=== PATIENT | female | born 1955 | race Caucasian/White ===

== ENCOUNTER → 2020-11-08 04:38 | Outpatient (CLI) | payer BC, SELFPAY ==
[2020-11-08 18:47] LABS: SARS-CoV-2 RNA PCR Negative
== END ==
PROVIDERS: PCP Family Medicine; Visit Provider Internal Medicine Gastroenterology
DX: Z01.812 Encounter for preprocedural laboratory examination (principal); Z20.822 Contact with and (suspected) exposure to COVID-19
CPT/HCPCS: C9803; U0003; U0005

== ENCOUNTER 2020-11-11 01:11 | Day surgery (SDC) | payer BC, SELFPAY ==
[2020-10-31 12:09] VITALS: BMI 20.9
[2020-11-11 06:34] VITALS: BP 125/78; PULSE 73; RESP 16; TEMP 36.3; O2SAT 100
[2020-11-11] MEDS: LACTATED RINGERS 1,000 ML 150 ML IV CONT (06:36)
--- NOTE | 2020-11-11 07:16 | P.PNAN_ITS ---
Anes - Initial Pre Proc Eval Procedure: Operation Date: 11/11/20 07:30 Proposed Procedures p Screening Colonoscopy - Sergei Chao MD Date/Time: 11/11/20 07:16 Surgeon: Sergei Chao MD Pre Op Diagnosis: neoplasm screening Patient Data Age: 64 Gender: F Height: 5 ft 6 in Weight: 58 kg Last Vital Signs Temp 97.4 F L 11/11/20 06:34 Pulse 73 11/11/20 06:34 Resp 16 11/11/20 06:34 BP 125/78 11/11/20 06:34 Pulse Ox 100 11/11/20 06:34 Allergies Allergy/AdvReac Type Severity Reaction Status Date / Time No Known Allergies Allergy Verified 11/11/20 06:32 Home Medications Medication Instructions Recorded Confirmed Type No Home Medications 11/11/20 11/11/20 History Patient hx anesthesia problems: none Family hx anesthesia problems: none COUNT INCLUDES THE [facility] Past Medical History Medical History (Updated 11/11/20 @ 07:16 by Mika Cooper MD) DVT (deep vein thrombosis) in Social History Social History Smoking status: Never smoker Alcohol intake: current Drinks per week: 2 Alcohol use details: WINE Substance use: never Substance use type: does not use Living arrangements: with family Spiritual care concerns: No Anes - Eval Final PreProcedure Day of Procedure 11/11/20 07:16 Patient weight: normal Heart: regular rate and rhythm Lungs: clear to auscultation Airway: Mallampati scale class II Neurological: alert and oriented Last oral intake: >/= 8 hours ASA classification: II Emergent: no Anesthetic plan: proceed Anesthesia type and monitoring: general GIVS and standard monitoring Informed Consent: The patient's anesthetic plan and its attendant risks and benefits were discussed with the patient/family/POA. Questions were solicited and answers provided to the satisfaction of the patient/family/POA.
--- NOTE | 2020-11-11 07:20 | P.CONGI_ITS ---
Assessment and Plan Assessment and plan (1) Encounter for screening colonoscopy: Code(s): Z12.11 - Encounter for screening for malignant neoplasm of colon Status: Acute Assessment and Plan: Patient presents for screening colonoscopy. Has been more than 10 years since last exam. She appears to be at average risk for colon polyps. GI Consult Note Consult date/time: 11/11/20 07:20 HPI: Regan Denise is a 64 year old female presents for neoplasia screening. Patient's last colonoscopy was greater than 10 years ago. Patient states that her current weight appetite and bowel movements are normal. She denies abdominal pain. She has had no bleeding. Her family history is noncontri butory. Review of Systems Review of Systems: All systems reviewed & are unremarkable except as noted in HPI and below PMFSH Past Medical History Medical History (Updated 11/11/20 @ 07:22 by Sergei Chao MD) DVT (deep vein thrombosis) in Social History Social History Smoking status: Never smoker Alcohol intake: current Drinks per week: 2 Alcohol use details: WINE Substance use: never Substance use type: does not use Living arrangements: with family Spiritual care concerns: No Meds Home Medications and Allergies Home Medications Medication Instructions Recorded Confirmed Type No Home Medications 11/11/20 11/11/20 History Allergies Allergy/AdvReac Type Severity Reaction Status Date / Time No Known Allergies Allergy Verified 11/11/20 06:32 Vital Signs Vital Signs - 24 hr 11/11/20 06:34 Temperature 97.4 F L Pulse Rate 73 Respiratory Rate 16 Blood Pressure 125/78 Pulse Oximetry 100 Exam Narrative: Exam Narrative: Physical exam reveals patient be alert. Vital signs stable. HEENT exam is unremarkable. Patient is anicteric. Lungs are clear to auscultation and percussion. Heart is without murmur or extra sounds. Abdominal exam bowel sounds are present soft nontender with no organomegaly. Digital external rectal exam is normal.
[2020-11-11 07:59] VITALS: BP 94/56; PULSE 58; RESP 17; O2SAT 100
[2020-11-11 08:09] VITALS: BP 99/56; PULSE 61; RESP 14; O2SAT 94
[2020-11-11 08:19] VITALS: BP 114/67; PULSE 51; RESP 17; O2SAT 100
== END 2020-11-11 08:30 | disposition home or self-care (01) ==
PROVIDERS: PCP Internal Medicine; Visit Provider Internal Medicine Gastroenterology
PROC: 0DJD8ZZ Inspection of Lower Intestinal Tract, Via Natural or Artificial Opening Endoscopic (ICD-10-PCS; CPT 45378; principal; 2020-11-11 07:30)
DX: Z12.11 Encounter for screening for malignant neoplasm of colon (principal); K64.8 Other hemorrhoids; Z86.718 Personal history of other venous thrombosis and embolism
CPT/HCPCS: 45378; J2704; J7120

== ENCOUNTER 2023-05-14 11:36 | Outpatient (CLI) | payer MEDICARE, SELFPAY ==
--- NOTE | ~2023-05-14 | DEXA_ITS ---
Bone Density Report Name: ALPA LEOS Age: 67 Sex: Female Ethnicity: White Date of : 1955 Indication: postmenopausal; screening for osteoporosis; height loss; hysterectomy; Referring Provider: ANGELLEIGHANN Study: Bone densitometry was performed. Exam Date: May 14, 2023 Accession number: [id number] Bone Density: Region BMD T-score Z-score Classification AP Spine(L1-L4) 0.784 -2.4 -0.5 Osteopenia Femoral Neck (Left) 0.664 -1.7 -0.1 Osteopenia Total Hip (Left) 0.824 -1.0 0.3 Normal Femoral Neck (Right) 0.610 -2.2 -0.6 Osteopenia Total Hip (Right) 0.798 -1.2 0.1 Osteopenia Total Hip Mean 0.811 -1.1 0.2 Osteopenia World Health Organization criteria for BMD impression classify patients as: Normal (T-score at or above -1.0), Osteopenia (T-score between -1.0 and -2.5), or Osteoporosis (T-score at or below -2.5). 10-year Fracture Risk: FRAX not reported because: Treated for osteoporosis Clinical Information Provided by Patient: Is being treated for osteoporosis Has used the following medications: Prolia (i.e. denosumab), Vitamin D, Calcium Has the following medical conditions: Hysterectomy Patient maximum height was 66 Menopause Age: 39 Drinks caffeinated beverages Onset of menses at age 14 Number of children 2 Impression: The patient has low bone mass, based on the Total Spine T-score. Discussion: It is important to ask patients whether they are taking their medications and to encourage continued and appropriate compliance with their osteoporosis therapies to reduce fracture risk. It is also important to review their risk factors and encourage appropriate calcium and vitamin D intakes, exercise, fall prevention and other lifestyle measures. Follow-Up: Consider a repeat BMD and Vertebral Fracture Assessment (VFA) exam in 2 years or sooner if medically necessary, to reassess this patient's status. Reported by: GIOVANNI on 05/14/2023 11:57:00 AM. Reviewed, dictated and finalized at location A. DEAN
== END 2023-05-14 11:37 | disposition home or self-care (01) ==
PROVIDERS: PCP Internal Medicine; Visit Provider Internal Medicine
DX: M81.0 Age-related osteoporosis without current pathological fracture (principal); M85.88 Other specified disorders of bone density and structure, other site; M85.852 Other specified disorders of bone density and structure, left thigh; M85.851 Other specified disorders of bone density and structure, right thigh
CPT/HCPCS: 77080

== ENCOUNTER 2025-03-01 09:23 | Emergency (ER) | payer MEDICARE, SELFPAY ==
[2025-03-01 09:39] VITALS: BP 140/83; PULSE 69; RESP 16; TEMP 36.6; O2SAT 100
--- NOTE | 2025-03-01 10:17 | ED.URI ---
HPI - URI/Sore Throat General Chief Complaint: Upper Respiratory Infection Stated Complaint: Thinks she has sinus infection Time Seen by Provider: 03/01/25 10:01 Source: patient and RN notes reviewed Mode of arrival: ambulatory Limitations: no limitations History of Present Illness HPI Narrative: 69-year-old female patient presents today complaining of nasal congestion and sinus pressure, postnasal drip, headache. She was initially seen by her PCP on 02/08/2025 after being ill for 4 days. She was started on Augmentin for 7 days at that time and finished on 02/14/2025. States at that time her symptoms had slightly improved for approximately 10 days but never fully resolved. Symptoms worsened again 4 days ago. Denies fever, shortness breath. She has tried Tylenol and Robitussin without much improvement. Related Data Home Medications ?Medication ?Instructions ?Recorded ?Confirmed ?Last Taken ?Type denosumab 60 mg/mL subcutaneous 60 mg subcut [id number] 05/05/23 05/05/23 Unknown History syringe (Prolia) ezetimibe 10 mg tablet 10 mg PO DAILY 05/05/23 05/05/23 Unknown History Allergies Allergy/AdvReac Type Severity Reaction Status Date / Time diphenhydramine (From Allergy Intermediate hives Verified 03/01/25 09:58 Benadryl) [id number] Reductase Allergy Nausea and Verified 03/01/25 09:59 Inhibitor Vomiting PMFSH Past Medical History Medical History Screening mammogram for breast cancer Normal colonoscopy Encounter for breast augmentation DVT (deep vein thrombosis) in Surgical History Surgical History History of tubal ligation History of hysterectomy Family History Family History Other Cerebrovascular accident Diabetes mellitus Social History Social History Smoking status: Never smoker Alcohol intake: current Drinks per week: 2 Alcohol use details: WINE Substance use: never Substance use type: does not use Lack of Transportation: No Lack of Food: Never True Current Housing: I Have Housing Concerned About Future Housing: No Difficulty Paying Gas/Electric Bills: No Difficulty Paying for Meds: No Currently Unemployed: No Education: Bachelor's Degree Difficulty w/ Childcare or Family Care: No Living arrangements: with family Occupation/Education: retired Gender identity (if verbalized by the patient): Female Sexual Orientation (if Verbalized by the Patient): Straight or Heterosexual Spiritual care concerns: No Comments At time of signature, I have reviewed and agree with nursing past medical, surgical, social and family history unless otherwise noted. Please see nursing chart for further information. There is no relevant family history pertinent to the presenting complaint Exam Narrative: GENERAL: Well-appearing, well-nourished, and in no acute distress. HEAD: Normocephalic, atraumatic. EYES: EOMI. No redness or drainage. Conjunctivae normal. ENT: Mucous membranes pink and moist. Nares mildly congested. No rhinorrhea. TMs normal bilaterally. +post nasal drip. Throat normal. Uvula midline. NECK: Normal AROM. Supple. No lymphadenopathy. CHEST: No respiratory distress. Clear to auscultation. HEART: Regular rate and rhythm. No murmur appreciated. EXTREMITIES: Normal range of motion. No edema. SKIN: Warm, dry, no rash. Capillary refill normal. Normal skin turgor. NEURO: No focal deficits. Alert and oriented x3. Gait steady. PSYCH: Normal affect. No signs of depression or anxiety. Course Course Level of Care: Express Care Visit Vital Signs Vital signs: Vital Signs Temperature 97.8 F 03/01/25 09:39 Pulse Rate 69 03/01/25 09:39 Respiratory Rate 16 03/01/25 09:39 Blood Pressure 140/83 03/01/25 09:39 Pulse Oximetry 100 03/01/25 09:39 Temperature 97.8 F 03/01/25 09:39 Pulse Rate 69 03/01/25 09:39 Respiratory Rate 16 03/01/25 09:39 Blood Pressure 140/83 03/01/25 09:39 Pulse Oximetry 100 03/01/25 09:39 Reviewed MDM - URI/Sore Throat MDM Narrative Medical decision making narrative: 69-year-old female patient presents today complaining of nasal congestion and sinus pressure, postnasal drip, headache. She was initially seen by her PCP on 02/08/2025 after being ill for 4 days. She was started on Augmentin for 7 days at that time and finished on 02/14/2025. States at that time her symptoms had slightly improved for approximately 10 days but never fully resolved. Symptoms worsened again 4 days ago. Denies fever, shortness breath. She has tried Tylenol and Robitussin without much improvement. Upon exam, patient has some mildly congested nasal passages and postnasal drainage. Due to time line, persistent symptoms, patient will be started on some doxycycline for sinusitis as well as a short course of prednisone to help with inflammation. Patient's symptoms initially were likely viral, but since she has been sick for close to 3 weeks, she may now have a secondary bacterial infection. Patient agrees with plan. Vital signs stable. Anticipatory guidance given. Differential Diagnosis Differential diagnosis: Likely upper respiratory infection, sinusitis and viral infection Critical Care Time Critical Care Time Critical Care Time: No Discharge Plan Discharge Clinical Impression: Sinusitis Qualifiers: Sinusitis location: unspecified location Chronicity: acute Recurrence: recurrent Qualified Code(s): J01.91 - Acute recurrent sinusitis, unspecified Patient Disposition: Home Condition: Stable Instructions: Antibiotic Form, Sinusitis (ED) Additional Instructions: Please take the doxycycline and prednisone as directed. Continue [id number] medication as needed for symptoms. Follow-up with your PCP in 3 days if symptoms are not improving.. Patient Language: Swiss Prescriptions: New prednisone 20 mg tablet 40 mg PO DAILY 5 Days Qty: 10 0RF doxycycline hyclate 100 mg tablet 100 mg PO BID 7 Days Qty: 14 0RF No Action ezetimibe 10 mg tablet 10 mg PO DAILY estradiol 0.01 % (0.1 mg/gram) cream 1 g vaginal 2XW Qty: 42.5 6RF Prolia 60 mg/mL syringe 60 mg subcut [id number] Follow-up/Referrals: Herbert,MD James [Primary Care Provider, Unknown] Time of Disposition: 10:17
== END 2025-03-01 10:25 | disposition home or self-care (01) ==
PROVIDERS: Emergency Provider Nurse Practitioner; PCP Internal Medicine
DX: J01.91 Acute recurrent sinusitis, unspecified (principal); Z86.718 Personal history of other venous thrombosis and embolism
CPT/HCPCS: 99213; G0463